=== PATIENT | female | born 1940 | race Two or more races ===

== ENCOUNTER 2018-05-30 19:58 | Emergency (ER) | payer OTHER ==
[~2018-05-30] VITALS: Ht 172.7 cm; Wt 91.0 kg
[2018-05-30 21:21] VITALS: BP 133/64
== END 2018-05-31 01:25 | disposition left against medical advice (07) ==
LOC: ER 19:58
DX: Z53.21 Procedure and treatment not carried out due to patient leaving prior to being seen by health care provider (principal); I10 Essential (primary) hypertension; Z86.73 Personal history of transient ischemic attack (TIA), and cerebral infarction without residual deficits